=== PATIENT | female | born 1965 | race Caucasian/White ===

== ENCOUNTER 2022-01-31 11:45 | Outpatient (REF) | payer OTHER, SELFPAY ==
[2022-02-04 05:16] LABS: Aldolase 2.2 U/L (<=8.1)
== END 2022-01-31 11:46 | disposition home or self-care (01) ==
LOC: HO.LAB 11:45
PROVIDERS: PCP Internal Medicine; Visit Provider Psychiatry & Neurology Neurology
DX: R53.83 Other fatigue (principal)
CPT/HCPCS: 36415; 82085; 82550